=== PATIENT | female | born 1975 | race Caucasian/White ===

== ENCOUNTER 2022-12-02 05:54 | Day surgery (SDC) | payer BC ==
[2022-12-02] MEDS ORDERED: fentaNYL 50 MCG/ML SDV ONE (06:44)
[2022-12-02] MEDS ORDERED: Midazolam 1 MG/ML 2 ML SDV ONE (06:44)
[2022-12-02] MEDS ORDERED: Propofol 200 MG/20 ML SDV ONE ×2 (06:44→07:15)
[2022-12-02] MEDS ORDERED: Lactated Ringers 1,000 ML IV SCH (07:00)
== END 2022-12-02 08:20 | disposition home or self-care (01) ==
LOC: JP.SDS 05:54
PROVIDERS: ATTEND Student in an Organized Health Care Education/Training Program
DX: Z12.11 Encounter for screening for malignant neoplasm of colon (principal); K57.30 Diverticulosis of large intestine without perforation or abscess without bleeding; K64.8 Other hemorrhoids; K21.9 Gastro-esophageal reflux disease without esophagitis; Z79.899 Other long term (current) drug therapy
CPT/HCPCS: 45378; J2250; J2704; J3010; J7120